=== PATIENT | female | born 1935 | race Two or more races ===

== ENCOUNTER 2022-12-09 01:01 | Emergency (ER) | payer OTHER ==
[~2022-12-09] VITALS: Ht 144.8 cm; Wt 45.4 kg
[2022-12-09] MEDS ORDERED: AMLODIPINE-OLM1 EACH PO (01:16)
[2022-12-09] MEDS ORDERED: CARVEDILOL ER40 MG PO (01:16)
[2022-12-09] MEDS ORDERED: SIMVASTATIN80 MG PO (01:16)
[2022-12-09] MEDS ORDERED: CALTRATE 600+D1 EACH PO (01:17)
[2022-12-09] MEDS ORDERED: RAZADYNE ER16 MG PO (01:17)
[2022-12-09] MEDS ORDERED: 8 HOUR PAIN RE650 M1 PO (01:17)
[2022-12-09] MEDS ORDERED: ACYCLOVIR15 GM TOP (02:50)
[2022-12-09] MEDS ORDERED: VALACYCLOVIR1000 MG PO (02:50)
== END 2022-12-09 03:18 ==
LOC: ER 01:01
DX: L13.0 Dermatitis herpetiformis (principal); I10 Essential (primary) hypertension; B00.89 Other herpesviral infection